=== PATIENT | male | born 1940 | race Caucasian/White ===

== ENCOUNTER 2018-12-23 21:36 | Inpatient (IN) | payer OTHER, MEDICAID ==
[~2018-12-23] VITALS: Ht 162.6 cm; Wt 45.8 kg
[~2018-12-23 21:36] MED LIST: GLYCOPYRROLATE 0.2 MG/ML VIAL IJ ONE; LR 1,000 ML IV.SOLN IV ONE; MIDAZOLAM HCL 5 MG/5 ML VIAL IVP ONE; NEOSTIGMINE METHYLSULFATE 1 MG/ML, 10 ML VIAL IVP ONE; PROPOFOL 200MG/ 20ML VIAL (DIPRIVAN) IV ONE; ROCURONIUM BROMIDE 10 MG/ML (ZEMURON) IV ONE; SEVOFLURANE 15 MIN GAS INH ONE
[2018-12-23 23:00] VITALS: BP_SYST 159
[2018-12-23] MEDS ORDERED: ACETAMINOPHEN 500 MG TABLET PO PRN (23:45)
[2018-12-23] MEDS ORDERED: ONDANSETRON HCL 4 MG/2 ML VIAL IVP PRN (23:45)
[2018-12-24 00:33] VITALS: BP_SYST 159
[2018-12-24] MEDS ORDERED: MOM PO (01:07)
[2018-12-24] MEDS ORDERED: SENN-22 PO (01:07)
[2018-12-24] MEDS ORDERED: MULT-1184 PO (01:07)
[2018-12-24] MEDS ORDERED: CLOP300T2 PO (01:07)
[2018-12-24] MEDS ORDERED: LIP40 PO (01:07)
[2018-12-24] MEDS ORDERED: ASPI-1155 PO (01:07)
[2018-12-24] MEDS ORDERED: FLUD0.1T PO (01:07)
[2018-12-24 01:27] VITALS: BP_SYST 156
[2018-12-24] MEDS: NACL 0.9% 1,000 ML IV SCH ×3 (02:31→23:38)
[2018-12-24 07:25] LABS: ANION GAP 6 (5-15); CALCIUM 9.3 mg/dL (8.4-11.0); CHLORIDE 113 mmol/L (98-107); CREATININE 0.85 mg/dL (0.55-1.30); GLUCOSE 109 mg/dL (70-99); SODIUM SERUM 148 mmol/L (136-145); UREA NITROGEN, BLOOD 26 mg/dL (8-21)
[2018-12-24 07:38] LABS: POTASSIUM 2.7 mmol/L (3.5-5.1)
[2018-12-24 08:08] VITALS: BP_SYST 156
[2018-12-24] MEDS ORDERED: POTASSIUM CHLORIDE 40 MEQ in D5W 250 ML IV ONE (09:00)
[2018-12-24 09:38] LABS: BASOPHILS % (AUTO) 0.2 % (0.0-2.0); EOSINOPHILS # (AUTO) 0.1 K/uL (0.0-0.4); EOSINOPHILS % (AUTO) 0.5 % (0.0-4.0); HEMATOCRIT 38.7 % (36-54); HEMOGLOBIN 12.9 g/dL (14.0-18.0); LYMPHOCYTES # (AUTO) 1.4 K/uL (1.0-5.5); MEAN CORPUSCULAR HEMOGLOBIN 28 pg (27-31); MEAN CORPUSCULAR HGB CONC 33 % (32-36); MEAN CORPUSCULAR VOLUME 84 fL (79.0-98.0); MONOCYTES # (AUTO) 0.5 K/uL (0.0-1.0); MONOCYTES % (AUTO) 4.5 % (1.7-9.3); NEUTROPHILS # (AUTO) 9.5 K/uL (1.8-7.7); NEUTROPHILS % (AUTO) 82.8 % (40.0-70.0); PLATELET COUNT (AUTO) 204 K/uL (130-430); RED BLOOD CELL COUNT(AUTO) 4.61 MIL/uL (4.2-6.2); RED CELL DISTRIBUTION WIDTH 15.1 % (9.0-15.0); WHITE BLOOD COUNT (AUTO) 11.5 K/uL (4.8-10.8)
[2018-12-24 11:49] LABS: BILIRUBIN,URINE NEGATIVE (NEGATIVE); BLOOD, URINE 1+ (NEGATIVE); CLARITY/URINE CLEAR (CLEAR); COLOR,URINE YELLOW (YELLOW); GLUCOSE,URINE NEGATIVE (NEGATIVE); KETONES,URINE 1+ (NEGATIVE); LEUKOCYTE ESTERASE ,URINE TRACE (NEGATIVE); NITRITE, URINE NEGATIVE (NEGATIVE); PROTEIN URINE TRACE (NEGATIVE); UROBILINOGEN,URINE 0.2 (0.2-1.0)
[2018-12-24 12:16] LABS: BACTERIA,URINE FEW /HPF (None Seen)
[2018-12-24 12:17] LABS: WBC,URINE 20-50 /HPF (0-3)
[2018-12-24 12:18] LABS: MUCUS,URINE 1+ /LPF (None Seen)
[2018-12-24 12:48] VITALS: BP_SYST 130; BP_SYST 161
[2018-12-24 16:21] VITALS: BP_SYST 167
[2018-12-24 19:49] VITALS: BP_SYST 157
[2018-12-25 01:21] VITALS: BP_SYST 137
[2018-12-25] MEDS ORDERED: CEFAZOLIN 1 GM IVPB PREMIX 50 ML IV ONE (06:30)
[2018-12-25 06:35] LABS: INR 1.4 (0.80-1.20); PROTHROMBIN TIME 14.5 SECS (9.5-12.5)
[2018-12-25 06:45] LABS: ANION GAP 6 (5-15); CALCIUM 9.1 mg/dL (8.4-11.0); CHLORIDE 115 mmol/L (98-107); CREATININE 0.82 mg/dL (0.55-1.30); GLUCOSE 103 mg/dL (70-99); SODIUM SERUM 148 mmol/L (136-145); UREA NITROGEN, BLOOD 20 mg/dL (8-21)
[2018-12-25 07:02] LABS: POTASSIUM 2.7 mmol/L (3.5-5.1)
[2018-12-25 07:41] VITALS: BP_SYST 151
[2018-12-25] MEDS ORDERED: fentaNYL CITRATE/PF 100 MCG/2 ML AMP ONE (07:55)
[2018-12-25] MEDS ORDERED: MIDAZOLAM HCL 5 MG/5 ML VIAL ONE (07:56)
[2018-12-25] MEDS ORDERED: SIMETHICONE 40 MG/0.6 ML ML ONE (07:56)
[2018-12-25] MEDS ORDERED: BENZOCAINE 20% 0.5mL UD SPRAY MM ONE (08:00)
[2018-12-25] MEDS ORDERED: LIDOCAINE 2%, 20 ML MDV ONE (08:00)
[2018-12-25] MEDS ORDERED: POTASSIUM CHLORIDE 40 MEQ in 0.45% NS 250 ML IV ONE (08:15)
[2018-12-25] MEDS: 0.45% NACL 1,000 ML IV SCH ×2 (09:30→21:42)
[2018-12-25] MEDS ORDERED: ALBUTEROL SULFATE 0.083% 2.5 MG/3 ML VIAL.NEB INH ONE (10:15)
[2018-12-25] MEDS ORDERED: ALBUTEROL SULFATE 0.083% 2.5 MG/3 ML VIAL.NEB INH PRN (10:15)
[2018-12-25] MEDS ORDERED: HYDROCORTISONE SOD SUCC 100 MG/2 ML VIAL IVP ONE (11:00)
[2018-12-25 11:51] VITALS: BP_SYST 163
[2018-12-25] MEDS: PIPERACILLIN/TAZO 4.5GM/DEX-IS 100 ML IV SCH ×2 (15:07→21:42)
[2018-12-25 16:07] VITALS: BP_SYST 162
[2018-12-25 19:47] VITALS: BP_SYST 145
[2018-12-25] MEDS: ALBUTEROL SULFATE 0.083% 2.5 MG/3 ML VIAL.NEB INH SCH (19:51)
[2018-12-26] VITALS (7 sets, daily range): BP systolic 129–148
[2018-12-26] MEDS: ALBUTEROL SULFATE 0.083% 2.5 MG/3 ML VIAL.NEB INH SCH ×4 (01:01→19:48)
[2018-12-26] MEDS: PIPERACILLIN/TAZO 4.5GM/DEX-IS 100 ML IV SCH ×3 (05:36→21:13)
[2018-12-26] MEDS: 0.45% NACL 1,000 ML IV SCH (05:36)
[2018-12-26] MEDS ORDERED: CEFAZOLIN 1 GM IVPB PREMIX 50 ML IV ONE (06:15)
[2018-12-26 06:39] LABS: INR 1.3 (0.80-1.20); PROTHROMBIN TIME 12.8 SECS (9.5-12.5)
[2018-12-26 07:03] LABS: BASOPHILS % (AUTO) 0.3 % (0.0-2.0); EOSINOPHILS # (AUTO) 0.1 K/uL (0.0-0.4); EOSINOPHILS % (AUTO) 0.9 % (0.0-4.0); HEMATOCRIT 35.7 % (36-54); HEMOGLOBIN 12.1 g/dL (14.0-18.0); LYMPHOCYTES # (AUTO) 1.6 K/uL (1.0-5.5); LYMPHOCYTES % (AUTO) 16.6 % (20.5-51.5); MEAN CORPUSCULAR HEMOGLOBIN 29 pg (27-31); MEAN CORPUSCULAR HGB CONC 34 % (32-36); MEAN CORPUSCULAR VOLUME 84 fL (79.0-98.0); MONOCYTES # (AUTO) 0.5 K/uL (0.0-1.0); MONOCYTES % (AUTO) 5.6 % (1.7-9.3); NEUTROPHILS # (AUTO) 7.2 K/uL (1.8-7.7); NEUTROPHILS % (AUTO) 76.6 % (40.0-70.0); PLATELET COUNT (AUTO) 195 K/uL (130-430); RED BLOOD CELL COUNT(AUTO) 4.25 MIL/uL (4.2-6.2); RED CELL DISTRIBUTION WIDTH 15.3 % (9.0-15.0); WHITE BLOOD COUNT (AUTO) 9.4 K/uL (4.8-10.8)
[2018-12-26 07:05] LABS: ALANINE AMINOTRANSFERASE 10 U/L (12-78); ALBUMIN 2.5 g/dL (3.4-4.8); ANION GAP 2 (5-15); ASPARTATE AMINOTRANSFERASE 15 U/L (10-37); CALCIUM 8.8 mg/dL (8.4-11.0); CHLORIDE 113 mmol/L (98-107); CREATININE 0.98 mg/dL (0.55-1.30); GLUCOSE 89 mg/dL (70-99); SODIUM SERUM 144 mmol/L (136-145); THYROID STIMULATING HORMONE 2.38 uIu/mL (0.34-4.82); TOTAL BILIRUBIN 1.2 mg/dL (0.0-1.0); UREA NITROGEN, BLOOD 16 mg/dL (8-21)
[2018-12-26 07:16] LABS: POTASSIUM 2.5 mmol/L (3.5-5.1)
[2018-12-26] MEDS ORDERED: POTASSIUM CHLORIDE 60 MEQ in D5W 500 ML IV ONE (09:00)
[2018-12-26] MEDS ORDERED: LR 1,000 ML IV SCH (09:40)
[2018-12-26] MEDS ORDERED: ONDANSETRON HCL 4 MG/2 ML VIAL IVP PRN (09:45)
[2018-12-26] MEDS: POTASSIUM CHLORIDE 10 MEQ in 0.45% NACL 1,000 ML IV SCH (11:21)
[2018-12-26] MEDS: MILK OF MAGNESIA 30 ML UDC PO SCH (21:11)
[2018-12-26] MEDS: POTASSIUM CHLORIDE 20 MEQ/PKT PACKET GT SCH (21:11)
[2018-12-26] MEDS: SENNOSIDES/DOCUSATE SODIUM 1 TAB TABLET(SENOKOT-S) PO SCH (21:14)
[2018-12-27 00:18] VITALS: BP_SYST 141
[2018-12-27] MEDS: ALBUTEROL SULFATE 0.083% 2.5 MG/3 ML VIAL.NEB INH SCH ×4 (00:24→20:24)
[2018-12-27] MEDS: POTASSIUM CHLORIDE 10 MEQ in 0.45% NACL 1,000 ML IV SCH (05:14)
[2018-12-27] MEDS: PIPERACILLIN/TAZO 4.5GM/DEX-IS 100 ML IV SCH ×3 (05:15→21:08)
[2018-12-27 06:58] LABS: ANION GAP 4 (5-15); CALCIUM 8.4 mg/dL (8.4-11.0); CHLORIDE 108 mmol/L (98-107); CREATININE 1.02 mg/dL (0.55-1.30); GLUCOSE 147 mg/dL (70-99); SODIUM SERUM 141 mmol/L (136-145); UREA NITROGEN, BLOOD 11 mg/dL (8-21)
[2018-12-27 07:03] LABS: BASOPHILS % (AUTO) 0.3 % (0.0-2.0); EOSINOPHILS # (AUTO) 0.2 K/uL (0.0-0.4); EOSINOPHILS % (AUTO) 2.4 % (0.0-4.0); HEMATOCRIT 31.8 % (36-54); HEMOGLOBIN 10.9 g/dL (14.0-18.0); LYMPHOCYTES # (AUTO) 1.4 K/uL (1.0-5.5); LYMPHOCYTES % (AUTO) 15.8 % (20.5-51.5); MEAN CORPUSCULAR HEMOGLOBIN 29 pg (27-31); MEAN CORPUSCULAR HGB CONC 34 % (32-36); MEAN CORPUSCULAR VOLUME 83 fL (79.0-98.0); MONOCYTES # (AUTO) 0.4 K/uL (0.0-1.0); MONOCYTES % (AUTO) 5.1 % (1.7-9.3); NEUTROPHILS # (AUTO) 6.7 K/uL (1.8-7.7); NEUTROPHILS % (AUTO) 76.4 % (40.0-70.0); PLATELET COUNT (AUTO) 175 K/uL (130-430); RED BLOOD CELL COUNT(AUTO) 3.82 MIL/uL (4.2-6.2); RED CELL DISTRIBUTION WIDTH 15.1 % (9.0-15.0); WHITE BLOOD COUNT (AUTO) 8.8 K/uL (4.8-10.8)
[2018-12-27 07:13] LABS: POTASSIUM 2.7 mmol/L (3.5-5.1)
[2018-12-27] MEDS ORDERED: POTASSIUM CHLORIDE 40 MEQ in 0.45% NS 250 ML IV ONE (08:30)
[2018-12-27] MEDS: CLOPIDOGREL BISULFATE 75 MG TABLET PO SCH (08:32)
[2018-12-27] MEDS: SENNOSIDES/DOCUSATE SODIUM 1 TAB TABLET(SENOKOT-S) PO SCH ×2 (08:32→20:08)
[2018-12-27] MEDS: ASPIRIN 81 MG TAB.CHEW PO SCH (08:32)
[2018-12-27] MEDS: ATORVASTATIN 20 MG TABLET PO SCH (08:32)
[2018-12-27] MEDS: POTASSIUM CHLORIDE 20 MEQ/PKT PACKET GT SCH ×4 (08:33→20:08)
[2018-12-27] MEDS: FLUDROCORTISONE ACETATE 0.1 MG TABLET( FLORINEF) PO SCH (08:33)
[2018-12-27 08:57] VITALS: BP_SYST 109
[2018-12-27 12:12] VITALS: BP_SYST 101
[2018-12-27 16:00] VITALS: BP_SYST 120
[2018-12-27] MEDS: MILK OF MAGNESIA 30 ML UDC PO SCH (20:08)
[2018-12-27 20:10] VITALS: BP_SYST 132
[2018-12-28 01:18] VITALS: BP_SYST 111
[2018-12-28] MEDS: ALBUTEROL SULFATE 0.083% 2.5 MG/3 ML VIAL.NEB INH SCH ×3 (01:44→13:25)
[2018-12-28] MEDS: POTASSIUM CHLORIDE 10 MEQ in 0.45% NACL 1,000 ML IV SCH (02:56)
[2018-12-28] MEDS: PIPERACILLIN/TAZO 4.5GM/DEX-IS 100 ML IV SCH ×2 (05:48→16:30)
[2018-12-28 07:25] VITALS: BP_SYST 104
[2018-12-28 08:07] VITALS: BP_SYST 104
[2018-12-28] MEDS: POTASSIUM CHLORIDE 20 MEQ/PKT PACKET GT SCH (10:10)
[2018-12-28] MEDS: FLUDROCORTISONE ACETATE 0.1 MG TABLET( FLORINEF) PO SCH (10:11)
[2018-12-28] MEDS: SENNOSIDES/DOCUSATE SODIUM 1 TAB TABLET(SENOKOT-S) PO SCH (10:11)
[2018-12-28] MEDS: ATORVASTATIN 20 MG TABLET PO SCH (10:11)
[2018-12-28] MEDS: ASPIRIN 81 MG TAB.CHEW PO SCH (10:15)
[2018-12-28 10:30] LABS: ANION GAP 5 (5-15); CALCIUM 8.5 mg/dL (8.4-11.0); CHLORIDE 114 mmol/L (98-107); CREATININE 0.85 mg/dL (0.55-1.30); GLUCOSE 129 mg/dL (70-99); POTASSIUM 3.8 mmol/L (3.5-5.1); SODIUM SERUM 148 mmol/L (136-145); UREA NITROGEN, BLOOD 10 mg/dL (8-21)
[2018-12-28] MEDS: CLOPIDOGREL BISULFATE 75 MG TABLET PO SCH (12:33)
[2018-12-28 16:20] VITALS: BP_SYST 118
== END 2018-12-28 17:21 | DRG 178 ==
LOC: STU 22:55
PROVIDERS: ADMIT Family Medicine; ATTEND Family Medicine
PROC: 0DH63UZ Insertion of Feeding Device into Stomach, Percutaneous Approach (ICD-10-PCS; principal; 2018-12-26 07:30)
DX: J69.0 Pneumonitis due to inhalation of food and vomit (principal); R64 Cachexia; E87.0 Hyperosmolality and hypernatremia; G81.90 Hemiplegia, unspecified affecting unspecified side; Z68.1 Body mass index [BMI] 19.9 or less, adult; R62.7 Adult failure to thrive; R13.10 Dysphagia, unspecified; E87.6 Hypokalemia; E86.0 Dehydration; F99 Mental disorder, not otherwise specified; E78.5 Hyperlipidemia, unspecified; F03.90 Unspecified dementia, unspecified severity, without behavioral disturbance, psychotic disturbance, mood disturbance, and anxiety; I10 Essential (primary) hypertension; K29.70 Gastritis, unspecified, without bleeding; K29.80 Duodenitis without bleeding; Z74.01 Bed confinement status; Z86.73 Personal history of transient ischemic attack (TIA), and cerebral infarction without residual deficits
CPT/HCPCS: 36415; 71045; 80048; 80053; 81000-TC; 83880; 84443-TC; 85025; 85610-TC; 87081; 87086; 93005; 94640; 94760; G0378; J0690; J1720; J2001; J2250; J2543; J2704; J2710; J3010; J3480; J3490; J7030; J7060; J7120; J7613